=== PATIENT | male | born 1955 | race Caucasian/White ===

== ENCOUNTER 2017-07-13 13:20 | Emergency (ER) | payer OTHER ==
[~2017-07-13] VITALS: Ht 182.9 cm; Wt 116.6 kg
[2017-07-13 15:39] VITALS: BP 142/77
[2017-07-13] MEDS ORDERED: METHOCARBAMOL 500 MG TAB PO ONE (16:15)
[2017-07-13] MEDS ORDERED: KETOROLAC TROMETH 60MG/2ML VIAL IM ONE (16:15)
== END 2017-07-13 16:31 | disposition home or self-care (01) ==
LOC: ER 13:20
DX: M54.9 Dorsalgia, unspecified (principal); I10 Essential (primary) hypertension; M19.90 Unspecified osteoarthritis, unspecified site
CPT/HCPCS: 96372; 99283; J1885